=== PATIENT | male | born 1990 | race Caucasian/White ===

== ENCOUNTER 2017-07-26 10:22 | Emergency (ER) | payer OTHER ==
[~2017-07-26] VITALS: Ht 193 cm; Wt 106.6 kg
[2017-07-26 10:58] LABS: ABSOLUTE NEUTROPHILS 5.3 thou/uL (1.4-8.2); EOSINOPHILS 1.5 % (0.0-3.0); HEMATOCRIT 53.6 % (42.0-52.0); HEMOGLOBIN 18.7 gm/dL (14.0-18.0); LYMPHOCYTES 28.7 % (24.0-44.0); MCH 31.6 pg (26.0-34.0); MCV 90.4 fL (80.0-100.0); MONOCYTES 9.1 % (1.0-8.0); PLATELET COUNT 307 thou/uL (150-400); POLYS 59.7 % (36.0-66.0); RBC 5.93 mil/uL (4.50-6.00); RDW 13.9 % (10.5-14.5); WBC 8.9 thou/uL (4.0-11.0)
[2017-07-26 10:59] LABS: MANUAL DIFF NO
[2017-07-26 11:07] LABS: CALCIUM 9.9 mg/dL (8.5-10.1); POTASSIUM 4.7 mmol/L (3.5-5.1)
[2017-07-26] MEDS ORDERED: NOHOMEMEDICATIONS (11:31)
[2017-07-26] MEDS ORDERED: OXYCODONE HCL 55 MG PO (13:08)
[2017-07-26] MEDS ORDERED: DOXYCYCLINE 10100 MG PO (13:08)
[2017-07-26 13:59] VITALS: BP 136/86
== END 2017-07-26 14:01 | disposition home or self-care (01) ==
LOC: ER 10:22
PROVIDERS: Emergency Medicine
DX: R06.00 Dyspnea, unspecified (principal); R07.89 Other chest pain; F10.99 Alcohol use, unspecified with unspecified alcohol-induced disorder